=== PATIENT | female | born 2000 | race Hispanic/Latino ===

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

== ENCOUNTER 2021-03-31 20:30 | Emergency (ER) | payer SELFPAY ==
--- OUTSIDE RECORDS SUMMARY | 2021-03-31 20:33 | XMS REPORT | Continuity of Care Document ---
:2000 Author Organization [facility] t Address [address] [place] [address] Care Team Providers Name Role Phone PCP, DOES NOT HAVE A Primary Care Physician Unavailable Maria C Perea Attending Clinician Doctor Unassigned, Name Attending Clinician Unavailable Jennifer Kimbrough NP Attending Clinician Jennifer KIMBROUGH Attending Clinician Unavailable Jennifer KIMBROUGH Admitting Clinician Unavailable Payers Payer Name Policy Type Policy Number Effective Date Expiration Date [facility] [id number] 2018 CHOICE CHIP 00:00:00 Problems Condition Condition Condition Status Onset Resolution Last Treating Co mments Source Name Details Category Date Date Treatment Clinician Date No known No known Disease Unive rs active active ity of problems problems [facility] Allergies, Adverse Reactions, Alerts Allergy Allergy Status Severity Reaction(s) Onset Inactive Treating Comm ents Source Name Type Date Date Clinician NO KNOWN Drug Active Univers ALLERGIE Class ity of S [facility] Social History Social Habit Start Date Stop Date Quantity Comments Source Sex Assigned At Uni versity [facility] Exposure to SARS-CoV-2 Not sure [facility] [place] (event) [facility] Smoking Status Start Date Stop Date Source Unknown if ever smoked Universit y [facility] Medications Ordered Filled Start Stop Current Ordering Indication Dosage Frequency Signature Comments Components Source Medication Medication Date Date Medication? Clinician (SIG) Name Name cephALEXin 2019-0 2020- No 500mg 500 mg, Un brenna (KEFLEX) 08-19 Oral, ity of capsule 500 20:45: 19:52 [place]CE, [place] :00 dose, [facility] 08/20/19 at Branch 1545, DINESH
Re ason for Anti-Infec tive: Documented Infection< br>Documen carmela Infection Site: Urine
D uration of Therapy: 10 days ibuprofen 2019-0 Yes [id number] 600mg Take 1 U nivers 600 mg 7-02 tablet by ity of tablet 00:00: mouth [place] 00 every 6 Medical (six) Branch hours as needed for Pain (scale 4-6). cephALEXin 2019-2019- No [id number] 500mg Take 1 Univers (KEFLEX) 7- 07-13 capsule by ity of 500 mg 00:00: 04:59 mouth 3 [place] capsule 00 :00 (three) Medical times Branch daily for 10 days. benzonatate 2019-0 Yes [id number] 100mg Take 1 Univers 100 mg 3-13 capsule by ity of capsule 00:00: mouth 3 [place] 00 (three) Medical times Branch daily as needed for Cough. benzonatate 2019-0 Yes [id number] 100mg Take 1 Univers 100 mg 3-13 capsule by ity of capsule 00:00: mouth 3 [place] 00 (three) Medical times Branch daily as needed for Cough. benzonatate 2020-0 Yes [id number] 100mg Take 1 Univers 100 mg 3-13 capsule by ity of capsule 00:00: mouth 3 [place] 00 (three) Medical times Branch daily as needed for Cough. predniSONE 2019- No [id number] 20mg Take 1 Univers 20 mg 3-13 03-19 tablet by ity of tablet 00:00: 04:59 mouth 2 [place] 00 :00 (two) Medical times Branch daily for 5 days. ibuprofen Yes 600mg Take 1 Unive rs 600 mg 1-05 tablet by ity of tablet 00:00: mouth [place] 00 every 6 Medical (six) Branch hours as needed for Pain (scale 1-3) or Temp > 38.5 C for up to 30 doses. ibuprofen 0 Yes 600mg Take 1 Unive rs 600 mg 1-05 tablet by ity of tablet 00:00: mouth [place] 00 every 6 Medical (six) Branch hours as needed for Pain (scale 1-3) or Temp > 38.5 C for up to 30 doses. ibuprofen 0 Yes 600mg Take 1 Unive rs 600 mg 1-05 tablet by ity of tablet 00:00: mouth [place] 00 every 6 Medical (six) Branch hours as needed for Pain (scale 1-3) or Temp > 38.5 C for up to 30 doses. ibuprofen 600mg Take 1 Univ ers 600 mg 02-22 tablet by ity of tablet 00:00: 00:00 mouth [place] 00 :00 every 6 Medical (six) Branch hours as needed for Pain (scale 1-3) or Temp > 38.5 C for up to 30 doses. Vital Signs Vital Name Observation Time Observation Value Comments Source Systolic blood 2019-08-20 17:20:00 129 mm[Hg] Univer sity of pressure [facility] Diastolic blood 2019-08-20 17:20:00 88 mm[Hg] Unive rsity of [facility] Heart rate 2019-08-20 17:20:00 82 /min Universi ty [facility] Body temperature 2019-08-20 17:20:00 36.94 Oly [facility] Respiratory rate 2019-08-20 17:20:00 18 /min [facility] Body weight 2019-08-20 17:20:00 [facility].523 [facility] saturation in 2019-08-20 17:20:00 100 /min University of Arterial blood by [facility] Pulse oximetry Branch Systolic blood 2019-08-20 17:20:00 129 mm[Hg] Univer sity of [facility] Diastolic blood 2019-08-20 17:20:00 88 mm[Hg] Unive rsity of [facility] Heart rate 2019-08-20 17:20:00 82 /min Universi ty [facility] Body temperature 2019-08-20 17:20:00 36.94 Oly [facility] Respiratory rate 2019-08-20 17:20:00 18 /min [facility] ersity of [facility] Body weight 2019-08-20 17:20:00 97.523 kg Universi ty [facility] Oxygen saturation in 2019-08-20 17:20:00 100 /min University of Arterial blood by [facility] Pulse oximetry Branch Systolic blood 2019-05-01 23:38:59 140 mm[Hg] Univer sity of pressure [facility] Diastolic blood 2019-05-01 23:38:59 77 mm[Hg] Unive rsity of pressure [place] [facility] Heart rate 2019-05-01 23:38:59 88 /min Universi ty [facility] [place] [facility] Oxygen saturation in 2019-05-01 23:38:59 100 /min University of Arterial blood by [facility] Pulse oximetry Branch Body temperature 2019-05-01 19:38:00 37.5 Oly Univ ers[facility] [place] [facility] Respiratory rate 2019-05-01 19:38:00 20 /min Univ ers[facility] [place] [facility] Body height 2019-05-01 19:38:00 172.7 cm [facility]i [facility] [place] [facility] Body weight 2019-05-01 19:25:00 95.3 kg Universi ty [facility] [place] [facility] BMI 2019-05-01 19:25:00 31.95 kg/m2 [facility]i [facility] [place] [facility] Systolic blood 2019-05-01 23:38:59 140 mm[Hg] Univer sity of pressure [place] [facility] Diastolic blood 2019-05-01 23:38:59 77 mm[Hg] Unive rsity of pressure [facility] Heart rate 2019-05-01 23:38:59 88 /min Universi ty [facility] [place] [facility] Oxygen saturation in 2019-05-01 23:38:59 100 /min University of Arterial blood by [facility] Pulse oximetry Branch Body temperature 2019-05-01 19:38:00 37.5 Oly Univ ers[facility] [place] [facility] Respiratory rate 2019-05-01 19:38:00 20 /min Univ ers[facility] [place] [facility] [place] Body height 2019-05-01 19:38:00 172.7 cm [facility] [place] [facility] Body weight 2019-05-01 19:25:00 95.3 kg [facility] [place] [facility] BMI 2019-05-01 19:25:00 31.95 kg/m2 [facility] [place] [facility] Procedures Procedure Date / Time Performed Performing Clinician Sourc e POCT TEST 2019-08-20 17:32:00 Raghavendra [facility] URINALYSIS 2019-08-20 17:31:00 Raghavendra Levine [place] o f [facility] CONSENT/REFUSAL FOR 2019-08-20 17:16:23 Doctor Unassigned, No Un [facility] DIAGNOSIS AND Name Medical Branch TREATMENT XR CHEST 2 VW 2019-05-01 22:50:14 Gudelia Kimbrough [facility] URINALYSIS 2019-05-01 21:35:00 Gudelia Kimbrough [facility] POCT TEST 2019-05-01 21:34:00 Gudelia Kimbrough [facility] RAPID STREP SCREEN FOR 2019-05-01 21:33:00 Gudelia Kimbrough [facility] ADC,CLC OR LCC ONLY - 2019-05-01 19:41:00 [facility] INFLU[facility]ZA A & B DIRECT Medical B ranch ANTIGEN NOTICE OF PRIVACY 2019-05-01 19:14:49 Doctor Unassigned, No [facility] Name Medical Branch CONSENT/REFUSAL FOR 2019-05-01 19:12:47 Doctor Unassigned, No [facility] AND Name Medical Branch TREATMENT Encounters Start End Encounter Admission Attending Care Care Encounter Source Date/Time Date/Time Type Type Clinicians Facility Department ID 2019-08-20 2019-08-20 Emergency Imani, K [facility] [id number] 12:23:02 15:14:00 Maria C Scott [id number] [place] 4.2.7.2.686 [place] [id number] 2019-08-20 2019-08-[address] [facility] [id number] Univers 12:23:02 15:14:00 Maria C Scott [id number] i ty of [place] 4.2.7.2.686 [facility] [id number] [place] [address] Branch 2019-08-20 2019-08-[address] [facility] ERT [id number] Univers 12:17:00 12:17:[address] [facility] 2019-08-20 2019-08-20 Orders Doctor KELLY [id number] 00:00:00 00:00:00 Only UnassignedALISE 350.1.13.10 [place] [facility] 4.2.7.2.686 [id number] 2019-08-20 2019-08-20 Orders Doctor KELLY [id number] Univers 00:00:00 00:00:00 Only Unassigned, ALISE [id number] ity of [place] [facility] 4.2.7.2.686 [place] [id number] [address] 2019-05-01 2019-05-01 Emergency [facility] [id number] 15:48:46 18:39:00 Gudelia Scott 350.1.13.10 [place] 4.2.7.2.686 [place] [id number] 2019-05-01 2019-05-01 Emergency X [facility] ERT [id number] Univers 15:48:46 18:39:00 GUDELIA it[address] of [facility] 2019-05-01 2019-05-01 Emergency [facility] [id number] Univers 15:48:46 18:39:00 Gudelia G Sonia 350.1.13.10 ity of [place] 4.2.7.2.686 [facility] [id number] [address] 2019-05-01 2019-05-01 Orders Doctor LETICIA [id number] Univers 00:00:00 00:00:00 Only Unassigned, ALISE 350.1.13.10 ity of [place] [facility] 4.2.7.2.686 [place] [id number] [address] 2019-05-01 2019-05-01 Orders Doctor LETICIA [id number] 00:00:00 00:00:00 Only Unassigned, ALISE 350.1.13.10 [place] [facility] 4.2.7.2.686 [id number] Results Test Description Test Time Test Comments Results Result Comments Source URINALYSIS 2019-08-20 18:20:00 Test Item Value Reference Range Interpretation Comme nts APPEARANCE (test code = Hazy Clear A 1883482393) COLOR (test code = 5836708669) Avis Yellow A PH (test code = 7119536032) 4.8-8.0 SP GRAVITY (test code = 1.003-1.030 5202740598) GLU U QUAL (test code = Normal Normal 1269911217) BLOOD (test code = 4459108501) 3+ Negative A KETONES (test code = 6392830992) Negative Negative PROTEIN (test code = 2887-8) 30 mg/dL Negative A UROBILIN (test code = Normal Normal 6081275346) BILIRUBIN (test code = Negative Negative 5650834335) NITRITE (test code = 5527815834) Negative Negative LEUK JORJE (test code = 25/uL Negative A 4803544580) RBC/HPF (test code = 5016459325) See_Comment H [Automated message] The system which ge nerated this result transmit carmela reference range: 0 - 3 HP F. The reference range was not used to interpret th is result as normal/abnormal . WBC/HPF (test code = 9282530429) See_Comment H [Automated message] The system which ge nerated this result transmit carmela reference range: 0 - 5 HP F. The reference range was not used to interpret th is result as normal/abnormal . BACTERIA (test code = Few Negative A 1826639407) MUCOUS (test code = 4440721765) Slight Negative LPF A SQ EPITH (test code = HPF 1795869579) Lab Interpretation (test code = Abnormal 16982-1) [id number] 17:32:00 Test Item Value Reference Range Interpretation Comments POCT PREG (test code = 1605) negative On board controls acceptable with C present Line (test code = 3574) POCT PREG LOT # (test code = 3575) [id number] POCT PREG TEST DATE (test 09/17/2020 code = 3576) Lab Interpretation (test code = Normal 65487-3) [facility] 2 [id number] 22:57:18 No acute cardiopulmonary process. Preliminary Report Dictated by Resident: Mo Mac MD., have reviewed this study and agree with theabove report.PROCEDURE: XR CHEST 2 VW CLINICAL INDICATION: cough COMPARISON: None TECHNIQUE: Frontal and lateral views of the chest were obtained. FINDINGS: The lungs are well-expanded and clear without focal consolidation, pleuraleffusion, orpneumothorax. The cardiac silhouette is normal in size. No acute osseous abnormality. [facility], Radiant Results Inft User - 05/01/2019 5:58 PM CDTPROCEDURE: XR CHEST 2 VWCLINICAL INDICATION: coughCOMPARISON: NoneTECHNIQUE: Frontal and lateral views of the chest were obtained.FINDINGS:The lungs are wel l-expanded and clear without focal consolidation, pleuraleffusion, or pneumothorax. The cardiac silhouette is normal in size. No acute osseous abnormality. IMPRESSIONNo acute cardiopulmonary process.Preliminary Report Dictated by Resident: Christian Castañeda MD., have reviewed this study and agree with theabove report.[facility] S[facility] FOR GROUP [id number] 22:14:00 Test Item Value Reference Range Interpretation Comments Streptococcus pyogenes (group A) Negative Negative antigen (test code = 61845-8) Lab Interpretation (test code = Normal 11592-3) [facility] CenterUrinalysis2020-03-13 22:04:00 Test Item Value Reference Range Interpretation Comments APPEARANCE (test code = Hazy Clear A 4882290545) COLOR (test code = Yellow Yellow 3552907553) PH (test code = 4.8-8.0 9050412546) SP GRAVITY (test code = 1.003-1.030 4678519626) GLU U QUAL (test code = Normal Normal 3927600583) BLOOD (test code = Negative Negative 3653262764) KETONES (test code = Negative Negative 4456299407) PROTEIN (test code = Negative Negative 2887-8) UROBILIN (test code = Normal Normal 3994980390) BILIRUBIN (test code = Negative Negative 8513682568) NITRITE (test code = Negative Negative 1787328804) LEUK JORJE (test code = 25/uL Negative A 6947794896) RBC/HPF (test code = See_Comment [Autom ated message] 9228914632) The system [employer] generated this result transmitted ref erence range: 0 - 3 HP F. The reference range was not used to int erpret this result as normal/abnormal . WBC/HPF (test code = See_Comment [Autom ated message] 5134125156) The system [employer] generated this result transmitted ref erence range: 0 - 5 HP F. The reference range was not used to int erpret this result as normal/abnormal . BACTERIA (test code = Negative Negative 7961034231) MUCOUS (test code = Slight Negative LPF A 3970102221) Lab Interpretation (test Abnormal code = 93887-6) [facility] [id number] 21:34:00 Test Item Value Reference Range Interpretation Comments POCT PREG (test code = 1605) negative Lab Interpretation (test code = Normal 22255-5) [facility] ONLY - INFLUENZA A & B DIRECT [id number] 20:15:00 Test Item Value Reference Range Interpretation Comments Influenza A (test code = 09240-2) Negative Negative Influenza B (test code = 24784-5) Negative Negative Lab Interpretation (test code = Normal 61431-9) [facility]
--- NOTE | 2021-03-31 21:45 | RAD REPORT ---
EXAM DESCRIPTION: RAD - Wrist Left 2 View - 03/31/2021 9:37 pm CLINICAL HISTORY: PAIN COMPARISON: No comparisons FINDINGS: No fracture is identified. There is no dislocation or periosteal reaction noted. No foreig n body or other soft tissue abnormality. IMPRESSION: Negative left wrist examination.
[2021-03-31 23:08] LABS: Urine Blood 3+ (Negative); Urine Glucose Negative (Negative); Urine Protein 2+ (Negative); Urine pH 8.5 (5.0-7.0)
[2021-03-31] MEDS ORDERED: KETOROLAC 30 MG/ML INJ ONE (23:20)
--- NOTE | 2021-03-31 23:33 | EDPHYS ---
Physician Documentation [facility] Name: Janett Zeng Age: 21 yrs Sex: Female : 2000 Arrival Date: 03/31/2021 Time: 20:37 Bed 18 Private MD: MINO Physician Gregory Wynne HPI: 03/31 22:57 This 21 yrs old Female presents to ER via Ambulatory with complaints of Wrist mh7 Pain. 22:57 The patient or guardian reports pain, swelling. The complaints affect the left hand and mh7 left wrist. Context: The problem was sustained at home, resulted from a repetitive motion, pulling, twisting. Onset: The symptoms/episode began/occurred today. Modifying factors: The symptoms are alleviated by nothing, the symptoms are aggravated by movement. Associated signs and symptoms: Pertinent negatives: cyanosis distally, decreased sensation distally, fever, nausea, numbness distally, tingling distally, vomiting. Severity of symptoms: At their worst the symptoms were moderate, earlier today, in the emergency department the symptoms have improved, moderately. The patient has experienced a previous episode, approximately 3 weeks ago. 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 Flu vaccine is not up to date. - Social history:: Smoking status: Patient denies any tobacco usage or history of. ROS: 22:57 Constitutional: Negative for fever, chills, and weight loss, Eyes: Negative for injury, mh7 pain, redness, and discharge, ENT: Negative for injury, pain, and discharge, Neck: Negative for injury, pain, and swelling, Cardiovascular: Negative for chest pain, palpitations, and edema, Respiratory: Negative for shortness of breath, cough, wheezing, and pleuritic chest pain, Abdomen/GI: Negative for abdominal pain, nausea, vomiting, diarrhea, and constipation, Back: Negative for injury and pain, : Negative for injury, bleeding, discharge, and swelling, Skin: Negative for injury, rash, and discoloration, Neuro: Negative for headache, weakness, numbness, tingling, and seizure, Psych: Negative for depression, anxiety, suicide ideation, homicidal ideation, and hallucinations, Allergy/Immunology: Negative for hives, rash, and allergies, Endocrine: Negative for neck swelling, polydipsia, polyuria, polyphagia, and marked weight changes, Hematologic/Lymphatic: Negative for swollen nodes, abnormal bleeding, and unusual bruising. Exam: 22:57 Constitutional: This is a well developed, well nourished patient who is awake, alert, mh7 and in no acute distress. Head/Face: Normocephalic, atraumatic. Eyes: Pupils equal round and reactive to light, extra-ocular motions intact. Lids and lashes normal. Conjunctiva and sclera are non-icteric and not injected. Cornea within normal limits. Periorbital areas with no swelling, redness, or edema. 22:57 Skin: Warm, dry with normal turgor. Normal color with no rashes, no lesions, and no evidence of cellulitis. Neuro: Awake and alert, GCS 15, oriented to person, place, time, and situation. Cranial nerves II-XII grossly intact. Motor strength 5/5 in all extremities. Sensory grossly intact. Cerebellar exam normal. Normal gait. Psych: Awake, alert, with orientation to person, place and time. Behavior, mood, and affect are within normal limits. 22:57 Musculoskeletal/extremity: Extremities: noted in the left wrist: pain, tenderness, ROM: limited active range of motion due to pain, in the left wrist, limited passive range of motion due to pain, in the left wrist, Circulation is intact in all extremities. Sensation intact. Compartment Syndrome exam of affected extremity: is normal. no numbness, no tingling, no sensation deficit, no palor, no weak pulses, Joints: the left wrist displays painful range of motion, tenderness, Weight bearing: able to fully bear weight, without difficulty, Tendon exam: specific tendon testing normal through active and passive range of motion Vital Signs: 20:56 BP 132 / 97; Pulse 95; Resp 16; Temp 98.9; Pulse Ox 100% on R/A; Weight 104.33 kg; vc1 Height 5 ft. 8 in. (172.72 cm); 20:56 Body Mass Index 34.97 (104.33 kg, 172.72 cm) vc1 Procedures: 23:35 Splinting: Splint applied to left wrist using wrist splint, applied by nurse. Examined mh7 by me, post splint application: neurovascular intact, 2+ distal pulses palpable, brisk capillary refill noted, Patient tolerated well. MDM: 23:30 Differential diagnosis: dislocation, closed fracture, contusion, abrasion, tendonitis. 7 Data reviewed: vital signs, nurses notes, lab test result(s), urinalysis, UPT: negative radiologic studies, plain films. Data interpreted: Pulse oximetry: on room air is 100 %. Interpretation: normal. Counseling: I had a detailed discussion with the patient and/or guardian regarding: the historical points, exam findings, and any diagnostic results supporting the discharge/admit diagnosis, lab results, radiology results, the need for outpatient follow up, a hand specialist, to return to the emergency department if symptoms worsen or persist or if there are any questions or concerns that arise at home. Response to treatment: the patient's symptoms have markedly improved after treatment. 23:33 Patient medically screened. 7 03/31 23:09 Order name: Urine Dipstick-Ancillary; Complete Time: 23:14 EDMS 03/31 23:25 Order name: Urine --Ancillary (enter results) cs9 03/31 21:00 Order name: XRAY Wrist LEFT 2 view; Complete Time: 22:19 vc1 03/31 23:25 Order name: Urine --Ancillary; Complete Time: 23:29 EDMS 03/31 22:46 Order name: Urine Test (obtain specimen); Complete Time: 23:19 7 03/31 23:16 Order name: Wrist Splint; Complete Time: 23:28 7 Administered Medications: 23:22 Drug: Ketorolac 30 mg Route: IM; Site: right deltoid; sf1 23:45 Drug: KeFLEX (cephalexin) 500 mg Route: PO; sf1 Disposition Summary: 03/31/21 23:33 Discharge Ordered Location: Home [facility] Problem: [facility] Symptoms: have improved mh Condition: Stable [facility] Diagnosis - Pain in left wrist mh7 - UTI/ Urinary tract infection, site not specified [facility] Followup: [facility] - With: Private Physician - When: 1 - 2 days - Reason: Worsening of condition, Recheck today's complaints, Continuance of care, Re-evaluation by your physician Followup: [facility] - With: Neil Del Cid MD - When: 2 - 3 days - Reason: Worsening of condition, Recheck today's complaints Discharge Instructions: - Discharge Summary Sheet [facility] - Urinary Tract Infection, Adult [facility] - Wrist Splint, Adult, [id number] [facility] - Wrist Pain, Adult, [id number] [facility] Forms: - Medication Reconciliation Form [facility] - Thank You Letter [facility] - Antibiotic Education [facility] - Prescription Opioid Use [facility] Prescriptions: - ketorolac 10 mg Oral tablet - take 1 tablet by ORAL route every 6 hours As needed not to exceed 40 mg in 7 24hrs; 15 tablet; Refills: 0, Product Selection Permitted - Cephalexin 500 mg Oral Capsule - take 1 capsule by ORAL route every 12 hours for 10 days; 20 capsule; Refills: 7 0, Product Selection Permitted Signatures: Dispatcher [employer] Gregory Hughes MD MD [facility] Haley Love RN RN vc1 Karlie Whittington RN RN sf1 Corrections: (The following items were deleted from the chart) 22:57 22:57 The patient or guardian reports pain, [place] [id number]
--- NOTE | 2021-03-31 23:33 | ER ---
Nurse's Notes [facility] Name: Janett Zeng Age: 21 yrs Sex: Female : 2000 Arrival Date: 03/31/2021 Time: 20:37 Bed 18 Private MD: Diagnosis: Pain in left wrist;UTI/ Urinary tract infection, site not specified Presentation: 03/31 20:53 Chief complaint: Patient states: 3 weeks ago my hand was hurting and swollen but it vc1 went away. Today it came back and it is swollen, I can't even open my hand. Coronavirus screen: Vaccine status: Patient reports being unvaccinated. Ebola Screen: No symptoms or risks identified at this time. Onset of symptoms was March 31, 2021. 20:53 Method Of Arrival: Ambulatory vc1 20:53 Acuity: THIEN 4 vc1 Triage Assessment: 20:54 General: Appears in no apparent distress. comfortable, Behavior is calm, cooperative, vc1 appropriate for age. Pain: Complains of pain in left wrist Pain does not radiate. Pain currently is 7 out of 10 on a pain scale. at worst was 10 out of 10 on a pain scale. Quality of pain is described as sharp, Alleviated by rest, Aggravated by movement, opening hand. Musculoskeletal: Range of motion: limited in left wrist Swelling present in left wrist Reports weakness in left wrist and left hand pain in left wrist. 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 Flu vaccine is not up to date. - Social history:: Smoking status: Patient denies any tobacco usage or history of. Vital Signs: 20:56 BP 132 / 97; Pulse 95; Resp 16; Temp 98.9; Pulse Ox 100% on R/A; Weight 104.33 kg; vc1 Height 5 ft. 8 in. (172.72 cm); 20:56 Body Mass Index 34.97 (104.33 kg, 172.72 cm) vc1 ED Course: 20:37 Patient arrived in ED. 20:54 Triage completed. vc1 20:54 Arm band placed on right wrist. vc1 21:36 XRAY Wrist LEFT 2 view In Process Unspecified. EDMS 22:12 Gregory Wynne MD is Attending Physician. [facility] 22:55 Karlie Whittington RN is Primary Nurse. sf1 23:32 Neil Del Cid MD is Referral Physician. [facility] Administered Medications: 23:22 Drug: Ketorolac 30 mg Route: IM; Site: right deltoid; sf1 23:45 Drug: KeFLEX (cephalexin) 500 mg Route: PO; sf1 Outcome: 23:33 Discharge ordered by . [facility] 23:46 Patient left the ED. sf1 Signatures: Dispatcher [employer] EDNV Gregory Wynne MD MD [facility] Rebecca Damon Haley Love RN RN vc1 Karlie Whittington RN RN sf1
[2021-03-31] MEDS ORDERED: levETIRAcetam 500 MG TAB ONE (23:41)
[2021-03-31 23:49] VITALS: BP 132/97; TEMP 98.9; O2SAT 100
== END 2021-03-31 23:46 | disposition home or self-care (01) ==
LOC: ER 20:30
DX: M25.532 Pain in left wrist (principal); N39.0 Urinary tract infection, site not specified
CPT/HCPCS: 81003; 81025; 96372; 99283

== ENCOUNTER 2021-07-23 01:05 | Emergency (ER) | payer SELFPAY ==
--- OUTSIDE RECORDS SUMMARY | 2021-07-23 01:08 | XMS REPORT | Continuity of Care Document ---
:2000 Author Organization [facility] t Address [address] [place] [address] [address]. [address] [place] [address] Care Team Providers Name Role Phone PCP, DOES NOT HAVE A Primary Care Physician Unavailable Imani PACMaria C Attending Clinician Doctor Unassigned, Name Attending Clinician Unavailable Jennifer Kimbrough NP Attending Clinician Jennifer KIMBROUGH Attending Clinician Unavailable Jennifer KIMBROUGH Admitting Clinician Unavailable Payers Payer Name Policy Type Policy Number Effective Date Expiration Date [facility] [id number] 2018 CHOICE CHIP 00:00:00 Problems Condition Condition Condition Status Onset Resolution Last Treating Co mments Source Name Details Category Date Date Treatment Clinician Date No known No known Disease Unive rs active active ity of problems problems [facility] Allergies, Adverse Reactions, Alerts Allergy Allergy Status Severity Reaction(s) Onset Inactive Treating Comm ents Source Name Type Date Date Clinician NO KNOWN Drug Active Univers ALLERGIE Class ity of S [facility] Social History Social Habit Start Date Stop Date Quantity Comments Source Sex Assigned At Uni versity [facility] Exposure to SARS-CoV-2 Not sure Un iversity [facility] (event) [facility] Smoking Status Start Date Stop Date Source Unknown if ever smoked Universit y [facility] Medications Ordered Filled Start Stop Current Ordering Indication Dosage Frequency Signature Comments Components Source Medication Medication Date Date Medication? Clinician (SIG) Name Name cephALEXin 2020-0 2020- No 500mg 500 mg, Un brenna (KEFLEX) 08-19 07-02 Oral, ity of capsule 500 20:45: 19:52 [place] :00 dose, [facility] 08/20/19 at Branch 1545, DINESH
Re ason for Anti-Infec tive: Documented Infection< br>Documen carmela Infection Site: Urine
D uration of Therapy: 10 days ibuprofen 2019-0 Yes [id number] 600mg Take 1 U nivers 600 mg 7-02 tablet by ity of tablet 00:00: mouth [place] 00 every 6 Medical (six) Branch hours as needed for Pain (scale 4-6). cephALEXin 2019- No [id number] 500mg Take 1 Univers (KEFLEX) 7- 07-13 capsule by ity of 500 mg 00:00: 04:59 mouth 3 [place] capsule 00 :00 (three) Medical times Branch daily for 10 days. benzonatate 2019-0 Yes [id number] 100mg Take 1 Univers 100 mg 3-13 capsule by ity of capsule 00:00: mouth 3 [place] 00 (three) Medical times Branch daily as needed for Cough. benzonatate 2019-0 Yes [id number] 100mg Take 1 Univers 100 mg 3-13 capsule by ity of capsule 00:00: mouth 3 [place] 00 (three) Medical times Branch daily as needed for Cough. benzonatate 2020-0 Yes [id number] 100mg Take 1 Univers 100 mg 3-13 capsule by ity of capsule 00:00: mouth 3 [place] 00 (three) Medical times Branch daily as needed for Cough. predniSONE 2019- No [id number] 20mg Take 1 Univers 20 mg 3-13 [...] C for up to 30 doses. ibuprofen Yes 600mg Take 1 Unive rs 600 mg 1-05 tablet by ity of tablet 00:00: mouth [place] 00 every 6 Medical (six) Branch hours as needed for Pain (scale 1-3) or Temp > 38.5 C for up to 30 doses. ibuprofen Yes 600mg Take 1 Unive rs 600 mg 1-05 tablet by ity of tablet 00:00: mouth [place] 00 every 6 Medical (six) Branch hours as needed for Pain (scale 1-3) or Temp > 38.5 C for up to 30 doses. ibuprofen 2019- No 600mg Take 1 Univ ers 600 mg 02-22 tablet by ity of tablet 00:00: 00:00 mouth [place] 00 :00 every 6 Medical (six) Branch hours as needed for Pain (scale 1-3) or Temp > 38.5 C for up to 30 doses. Vital Signs Vital Name Observation Time Observation Value Comments Source Systolic blood 2019-08-20 17:20:00 129 mm[Hg] Univer sity of pressure [facility] Diastolic blood 2019-08-20 17:20:00 88 mm[Hg] Unive rsity of [facility] Heart rate 2019-08-20 17:20:00 82 /min Universi ty [facility] Body temperature 2019-08-20 17:20:00 36.94 Oly [facility] [place] [facility] ersity of [facility] Respiratory rate 2019-08-20 17:20:00 18 /min [facility] ersity of [facility] Body weight 2019-08-20 17:20:00 97.523 kg Universi ty [facility] Oxygen saturation in 2019-08-20 17:20:00 100 /min University of Arterial blood by [facility] Pulse oximetry Branch Systolic blood 2019-08-20 17:20:00 129 mm[Hg] Univer sity of [facility] Diastolic blood 2019-08-20 17:20:00 88 mm[Hg] Unive rsity of [facility] Heart rate 2019-08-20 17:20:00 82 /min Universi ty [facility] Body temperature 2019-08-20 17:20:00 36.94 Oly [facility] Respiratory rate 2019-08-20 17:20:00 18 /min [facility] [place] [facility] ersity of [facility] Body weight 2019-08-20 17:20:00 97.523 kg Universi ty [facility] Oxygen saturation in 2019-08-20 17:20:00 100 /min University of Arterial blood by [facility] Pulse oximetry Branch Systolic blood 2019-05-01 23:38:59 140 mm[Hg] Univer sity of pressure [facility] Diastolic blood 2019-05-01 23:38:59 77 mm[Hg] Unive rsity of pressure [facility] Heart rate 2019-05-01 23:38:59 88 /min Universi ty [facility] Oxygen saturation in 2019-05-01 23:38:59 100 /min University of Arterial blood by [facility] Pulse oximetry Branch Body temperature 2019-05-01 19:38:00 37.5 Oly Univ ersity of [facility] Respiratory rate 2019-05-01 19:38:00 20 /min Univ ersity of [facility] Body height 2019-05-01 19:38:00 172.7 cm Universi ty [facility] Body weight 2019-05-01 19:25:00 95.3 kg Universi ty [facility] BMI 2019-05-01 19:25:00 31.95 kg/m2 Universi ty [facility] Systolic blood 2019-05-01 23:38:59 140 mm[Hg] Univer sity of pressure [facility] Diastolic blood 2019-05-01 23:38:59 77 mm[Hg] Unive rsity of pressure [facility] Heart rate 2019-05-01 23:38:59 88 /min Universi ty of [facility] Oxygen saturation in 2019-05-01 23:38:59 100 /min University of Arterial blood by [facility] Pulse oximetry Branch Body temperature 2019-05-01 19:38:00 37.5 Oly Univ ersity of [facility] Respiratory rate 2019-05-01 19:38:00 20 /min Univ ersity of [facility] Body height 2019-05-01 19:38:00 172.7 cm Universi ty of [facility] Body weight 2019-05-01 19:25:00 95.3 kg Universi ty [facility] BMI 2019-05-01 19:25:00 31.95 kg/m2 Universi ty [facility] Procedures Procedure Date / Time Performed Performing Clinician Sourc e POCT TEST 2019-08-20 17:32:00 Raghavendra Levine [facility] ty of [facility] URINALYSIS 2019-08-20 17:31:00 Raghavendra Levine o f [facility] CONSENT/REFUSAL FOR 2019-08-20 17:16:23 Doctor Unassigned, No Un [facility] DIAGNOSIS AND Name Medical Branch TREATMENT XR CHEST 2 VW 2019-05-01 22:50:[address] [facility] URINALYSIS 2019-05-01 21:35:[address] [facility] POCT TEST 2019-05-01 21:34:00 Gudelia Kimbrough [facility] RAPID STREP SCREEN FOR 2019-05-01 21:33:00 Gudelia Kimbrough [facility] [place] [facility] ADC,CLC OR LCC ONLY - 2019-05-01 19:41:00 Gudelia Kimbrough [facility] [place] [facility] [place] [facility] INFLU[facility]ZA A & B DIRECT Medical B [place] ANTIGEN NOTICE OF PRIVACY 2019-05-01 19:14:49 Doctor Unassigned, No Univ [facility] [place] [facility] Name Medical Branch CONSENT/REFUSAL FOR 2019-05-01 19:12:47 Doctor Unassigned, No [facility] [place] [facility] DIAG[facility]IS AND Name Medical Branch TREATMENT Encounters Start End Encounter Admission Attending Care Care Encounter Source Date/Time Date/Time Type Type Clinicians Facility Department ID 2019-08-20 2019-08-20 Emergency Imani, [facility] [id number] 12:23:02 15:14:00 Maria C Scott [id number] [place] 4.2.7.2.686 [place] [id number] 2019-08-20 2019-08-20 Emergency Imani, K [facility] [id number] Univers 12:23:02 15:14:00 Maria C Scott [id number] i ty of [place] 4.2.7.2.686 [facility] [id number] [place] [address] Branch 2019-08-20 2019-08-20 Emergency X [facility] ERT [id number] Univers 12:17:00 12:17:00 ity of [facility] 2019-08-20 2019-08-20 Orders Doctor KELLY [id number] 00:00:00 00:00:00 Only UnassignedALISE 350.1.13.10 [place] [facility] 4.2.7.2.686 [id number] 2019-08-20 2019-08-20 Orders Doctor KELLY [id number] Univers 00:00:00 00:00:00 Only Unassigned, ALISE 350.1.13.10 ity of [place] [facility] 4.2.7.2.686 [place] as [id number] [facility] [address] [place] 2019-05-01 2019-05-01 Emergency [facility] [id number] 15:48:46 18:39:00 Gudeila Scott 350.1.13.10 [place] 4.2.7.2.686 [place] [id number] 2019-05-01 2019-05-01 Emergency X [facility] ERT [id number] Univers 15:48:46 18:39:00 GUDELIA ity of [facility] 2019-05-01 2019-05-01 Emergency [facility] [id number] Univers 15:48:46 18:39:00 Gudelia Scott 350.1.13.10 ity of [place] 4.2.7.2.686 [facility] [id number] [place] [address] [place] 2019-05-01 2019-05-01 Orders Doctor LETICIA [id number] Univers 00:00:00 00:00:00 Only Unassigned, ALISE 350.1.13.10 ity of [place] [facility] 4.2.7.2.686 [place] as [id number] [facility] [address] [place] 2019-05-01 2019-05-01 Orders Doctor LETICIA [id number] 00:00:00 00:00:00 Only Unassigned, ALISE 350.1.13.10 [place] [facility] 4.2.7.2.686 [id number] Results Test Description Test Time Test Comments Results Result Comments Source URINALYSIS 2019-08-20 18:20:00 Test Item Value Reference Range Interpretation Comme nts APPEARANCE (test code = Hazy Clear A 2270109152) COLOR (test code = 0931022616) Avis Yellow A PH (test code = 7326257384) 4.8-8.0 SP GRAVITY (test code = 1.003-1.030 2536105359) GLU U QUAL (test code = Normal Normal 3788823342) BLOOD (test code = 7078703793) 3+ Negative A KETONES (test code = 0633847358) Negative Negative PROTEIN (test code = 2887-8) 30 mg/dL Negative A UROBILIN (test code = Normal Normal 6555847578) BILIRUBIN (test code = Negative Negative 0493633325) NITRITE (test code = 3486261580) Negative Negative LEUK JORJE (test code = 25/uL Negative A 6339491376) RBC/HPF (test code = 3772053053) See_Comment H [Automated message] The system which ge nerated this result transmit carmela reference range: 0 - 3 HP F. The reference range was not used to interpret th is result as normal/abnormal . WBC/HPF (test code = 7967105619) See_Comment H [Automated message] The system which ge nerated this result transmit carmela reference range: 0 - 5 HP F. The reference range was not used to interpret th is result as normal/abnormal . BACTERIA (test code = Few Negative A 8860787492) MUCOUS (test code = 5141776605) Slight Negative LPF A SQ EPITH (test code = HPF 9029492873) Lab Interpretation (test code = Abnormal 06771-5) [id number] 17:32:00 Test Item Value Reference Range Interpretation Comments POCT PREG (test code = 1605) negative On board controls acceptable with C present Line (test code = 3574) POCT PREG LOT # (test code = 3575) [id number] POCT PREG TEST DATE (test 09/17/2020 code = 3576) Lab Interpretation (test code = Normal 06522-9) [facility] 2 [id number] 22:57:18 No acute cardiopulmonary process. Preliminary Report [...] reviewed this study and agree with theabove report.[facility] FOR GROUP [id number] 22:14:00 Test Item Value Reference Range Interpretation Comments Streptococcus pyogenes (group A) Negative Negative antigen (test code = 76543-3) Lab Interpretation (test code = Normal 11646-6) [facility] 22:04:00 Test Item Value Reference Range Interpretation Comments APPEARANCE (test code = Hazy Clear A 1793713537) COLOR (test code = Yellow Yellow 9259676702) PH (test code = 4.8-8.0 7812689233) SP GRAVITY (test code = 1.003-1.030 8031750507) GLU U QUAL (test code = Normal Normal 3553551810) BLOOD (test code = Negative Negative 8731837759) KETONES (test code = Negative Negative 6122425167) PROTEIN (test code = Negative Negative 2887-8) UROBILIN (test code = Normal Normal 4279418747) BILIRUBIN (test code = Negative Negative 4380862906) NITRITE (test code = Negative Negative 8312817848) LEUK JORJE (test code = 25/uL Negative A 8302910441) RBC/HPF (test code = See_Comment [Autom ated message] 3787178760) The system bVisual generated this result transmitted ref erence range: 0 - 3 HP F. The reference range was not used to int erpret this result as normal/abnormal . WBC/HPF (test code = See_Comment [Autom ated message] 8390690062) The system bVisual generated this result transmitted ref erence range: 0 - 5 HP F. The reference range was not used to int erpret this result as normal/abnormal . BACTERIA (test code = Negative Negative 8280773933) MUCOUS (test code = Slight Negative LPF A 9905959015) Lab Interpretation (test Abnormal code = 00408-0) [facility] [id number] 21:34:00 Test Item Value Reference Range Interpretation Comments POCT PREG (test code = 1605) negative Lab Interpretation (test code = Normal 48533-4) [facility] - INFLUENZA A & B DIRECT [id number] 20:15:00 Test Item Value Reference Range Interpretation Comments Influenza A (test code = 38416-4) Negative Negative Influenza B (test code = 78331-7) Negative Negative Lab Interpretation (test code = Normal 91254-0) [facility]
[2021-07-23 02:08] LABS: Urine Blood Trace-intact (Negative); Urine Glucose Negative (Negative); Urine Protein Trace (Negative); Urine pH 7.5 (5.0-7.0)
[2021-07-23 02:08] LABS: Absolute Lymphocytes (CBC) 4.4 K/uL (0.7-4.9); Hematocrit 41.1 % (36.0-45.0); Lymphocytes % 40.8 % (15.3-44.8); MPV 8.6 fL (7.6-11.3); RBC Red Blood Cell Count 4.66 M/uL (3.86-4.86)
[2021-07-23 02:18] LABS: Potassium 3.6 mmol/L (3.5-5.1)
--- NOTE | 2021-07-23 03:29 | ER ---
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 Care prior to arrival: None. Mechanism of Injury: Fall blow up water slide approximately 18 feet. Trauma event details: [facility] Injury occurred: at home. Injury occurred: July 23, 2021 Injury occurred at: 00:45. 01:22 Acuity: THIEN 2 5 01:22 Method Of Arrival: Ambulatory [facility] 01:58 Coronavirus screen: Vaccine status: Patient reports being unvaccinated. Ebola Screen: [facility] No symptoms or risks identified at this time. Initial Sepsis Screen: Does the patient meet any 2 criteria? No. Patient's initial sepsis screen is negative. Does the patient have a suspected source of infection? No. Patient's initial sepsis screen is negative. Risk Assessment: Do you want to hurt yourself or someone else? Patient reports no desire to harm self or others. Onset of symptoms was July 23, 2021. 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 - Immunization history: Last tetanus immunization: unknown. - Social history:: Smoking status: Patient denies any tobacco usage or history of. Screenin: Abuse screen: Denies threats or abuse. Denies injuries from another. Tuberculosis sm5 screening: No symptoms or risk factors identified. 02:00 Nutritional screening: No deficits noted. Fall Risk Fall in past 12 months (25 points). sm5 No secondary diagnosis (0 pts). IV access (20 points). Ambulatory Aid- None/Bed Rest/Nurse Assist (0 pts). Gait- Normal/Bed Rest/Wheelchair (0 pts) Mental Status- Oriented to own ability (0 pts). Total Farmer Fall Scale indicates High Risk Score (45 or more points). Fall prevention measures have been instituted. Side Rails Up X 2 Frequent Obs/Assessments Occuring As available patient and family educated on Fall Prevention Program and Strategies. Primary Survey: 01:25 NO uncontrolled hemorrhage observed. A: The client is awake and alert. The airway is sm5 patent. Breathing/Chest: Spontaneous respiratory effort, equal unlabored respirations, breath sounds clear bilaterally, regular pattern, symmetrical chest rise and fall. Circulation: No external hemorrhage present. Regular and strong central pulse, skin warm/dry/normal color. Disability Client is alert. Exposure/Environment: There is no evidence of uncontrolled external bleeding. No obvious injuries are noted at this time. A warming method has been applied: A warm blanket has been provided to the patient. 03:31 Reassessment Alertness and Airway: Awake and alert. The airway is patent. Breathing: sm5 Spontaneous respiratory effort, equal unlabored respirations, breath sounds clear bilaterally, regular pattern with symmetrical chest rise and fall. Circulation: No external hemorrhage noted. Regular and strong central pulse, skin warm/dry/normal color. Disability: Alert. Secondary Survey: 01:25 HEENT: No deficits noted. Gastrointestinal: No deficits noted. : No deficits noted. sm5 Musculoskeletal: Reports pain in neck, lower back. Assessment: 01:24 General: Appears in no apparent distress. Behavior is cooperative. Pain: Complains of sm5 pain in neck, head, lower back. Neuro: No deficits noted. Hsieh Agitation-Sedation Scale (RASS): 0 - Alert and Calm Level of Consciousness is awake, alert, obeys commands, Oriented to person, place, time, situation. Cardiovascular: No deficits noted. Capillary refill < 3 seconds Patient's skin is warm and dry. Respiratory: No deficits noted. Airway is patent Trachea midline Respiratory effort is even, unlabored. 01:48 Reassessment: Patient and/or family updated on plan of care and expected duration. Pain kd3 level reassessed. Patient is alert, oriented x 3, equal unlabored respirations, skin warm/dry/pink. pt refusing to wear neck brace. pt refusing to lay flat. pt educated on possible risks with fall injuries and trauma and protocol related to neck braces. pt verbalizes understanding. pt insisting to walk to the restroom for urine sample. Vital Signs: 01:26 BP 118 / 75; Pulse 102; Resp 17; Temp 97.9(O); Pulse Ox 99% on R/A; Weight 108.86 kg; sm5 Height 5 ft. 8 in. (172.72 cm); 03:30 BP 119 / 71; Pulse 88; Resp 16; Pulse Ox 99% on R/A; sm5 01:26 Body Mass Index 36.49 (108.86 kg, 172.72 cm) sm5 [place] Coma Score: 01:26 Eye Response: spontaneous(4). Verbal Response: oriented(5). Motor Response: obeys sm5 commands(6). Total: 15. Trauma Score (Adult): 01:26 Eye Response: spontaneous(1); Verbal Response: oriented(1); Motor Response: obeys sm5 commands(2); Systolic BP: > 89 mm Hg(4); Respiratory Rate: 10 to 29 per min(4); [place] Score: 15; Trauma Score: 12 ED Course: 01:13 Patient arrived in ED. ja2 01:16 Angel Berger DO is Attending Physician. ms3 01:22 Evita Dickson, MARINO is Primary Nurse. sm5 01:24 Triage completed. sm5 01:58 Arm band placed on right wrist. sm5 01:59 Patient has correct armband on for positive identification. Bed in low position. Call sm5 light in reach. Side rails up X2. 02:00 Patient maintains SpO2 saturation greater than 95% on room air. Thermoregulation: warm sm5 blanket given to patient. 02:52 CT Traumagram (Head C Spine CAP W Con) In Process Unspecified. EDMS 03:27 Favian Wolfe DO is Referral Physician. ms3 03:30 No provider procedures requiring assistance completed. IV discontinued, intact, sm5 bleeding controlled, No redness/swelling at site. Pressure dressing applied. Administered Medications: No medications were administered Medication: 03:31 VIS not applicable for this client. 5 Output: 03:31 Urine: 30ml (Voided); Total: 30ml. 5 Outcome: 03:28 Discharge ordered by . ms3 03:32 Patient's length of stay in the Emergency Department was greater than 2 hours. 5 03:44 Discharged to home ambulatory, with significant other. 5 03:44 Condition: stable 03:44 Discharge instructions given to patient, significant other, Instructed on discharge instructions, follow up and referral plans. medication usage, Demonstrated understanding of instructions, follow-up care, medications, Prescriptions given X 1. 03:44 Patient left the ED. 5 Signatures: Dispatcher [employer] EDMS Angel Berger DO DO ms3 Rachell Pollock Kyli, RN RN kd3 Evita Dickson, RN RN sm5
--- NOTE | 2021-07-23 03:29 | EDPHYS ---
Physician Documentation [facility] Name: Janett Zeng Age: 21 yrs Sex: Female : 2000 Arrival Date: 07/23/2021 Time: 01:13 Bed 13 Private MD: ED Physician Angel Berger HPI: 07/23 03:28 This 21 yrs old Female presents to ER via Ambulatory with complaints of Fall ms3 Injury. 03:28 Details of fall: The patient fell from a height, 18 ft inflatable slide. Onset: The ms3 symptoms/episode began/occurred acutely, just prior to arrival. Associated injuries: The patient sustained injury to the head, pain, injury to the low back, pain. Severity of symptoms: At their worst the symptoms were moderate, in the emergency department the symptoms are unchanged. Patient states she was at the top of an 18 foot inflatable slide when the material ripped causing her to fall.. 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 - Immunization history: Last tetanus immunization: unknown. - Social history:: Smoking status: Patient denies any tobacco usage or history of. ROS: 03:28 Constitutional: Negative for fever, and chills. Neck: Negative for injury, pain, and ms3 swelling, Cardiovascular: Negative for chest pain, and palpitations. Respiratory: Negative for shortness of breath, cough, wheezing, and pleuritic chest pain. 03:28 Abdomen/GI: Negative for abdominal pain, nausea, vomiting, diarrhea, and constipation, Skin: Negative for injury, rash, and discoloration. 03:28 Back: Positive for injury or acute deformity, pain at rest. 03:28 Neuro: Positive for headache. 03:28 All other systems are negative. Exam: 03:28 Constitutional: This is a well developed, well nourished patient who is awake, alert, ms3 and in no acute distress. Head/Face: Normocephalic, atraumatic. Neck: Trachea midline, no cervical lymphadenopathy. Supple, full range of motion without nuchal rigidity, or vertebral point tenderness. No Meningismus. Chest/axilla: Normal chest wall appearance and motion. Nontender with no deformity. Cardiovascular: Regular rate and rhythm with a normal S1 and S2. No gallops, murmurs, or rubs. Normal PMI, no JVD. No pulse deficits. Respiratory: Lungs have equal breath sounds bilaterally, clear to auscultation and percussion. No rales, rhonchi or wheezes noted. No increased work of breathing, no retractions or nasal flaring. Abdomen/GI: Soft, non-tender, with normal bowel sounds. No distension or tympany. No guarding or rebound. No evidence of tenderness throughout. Skin: Warm, dry with normal turgor. Normal color with no rashes, no lesions, and no evidence of cellulitis. MS/ Extremity: Pulses equal, no cyanosis. Neurovascular intact. Full, normal range of motion. Psych: Awake, alert, with orientation to person, place and time. Behavior, mood, and affect are within normal limits. 03:28 Back: pain, that is moderate, ROM is normal, muscle spasm, is not present. Vital Signs: 01:26 BP 118 / 75; Pulse 102; Resp 17; Temp 97.9(O); Pulse Ox 99% on R/A; Weight 108.86 kg; sm5 Height 5 ft. 8 in. (172.72 cm); 03:30 BP 119 / 71; Pulse 88; Resp 16; Pulse Ox 99% on R/A; sm5 01:26 Body Mass Index 36.49 (108.86 kg, 172.72 cm) sm5 [place] Coma Score: 01:26 Eye Response: spontaneous(4). Verbal Response: oriented(5). Motor Response: obeys sm5 commands(6). Total: 15. Trauma Score (Adult): 01:26 Eye Response: spontaneous(1); Verbal Response: oriented(1); Motor Response: obeys sm5 commands(2); Systolic BP: > 89 mm Hg(4); Respiratory Rate: 10 to 29 per min(4); [place] Score: 15; Trauma Score: 12 MDM: 01:21 Patient medically screened. ms3 03:28 Differential diagnosis: closed head injury, contusion, fracture. Data reviewed: vital ms3 signs, nurses notes, lab test result(s), radiologic studies, and as a result, I will discharge patient. Counseling: I had a detailed discussion with the patient and/or guardian regarding: the historical points, exam findings, and any diagnostic results supporting the discharge/admit diagnosis, lab results, radiology results, the need for outpatient follow up, to return to the emergency department if symptoms worsen or persist or if there are any questions or concerns that arise at home. ED course: Discussed labs, CT, physical exam findings with patient. Patient to follow-up with primary care physician in 2 to 3 days. Patient understands and agrees with plan. All questions were answered. Return precautions discussed include worsening symptoms, or any other concerns. On reevaluation patient is alert and oriented x4, in no apparent distress, nontoxic-appearing, speaking full sentences, ambulatory in emergency department.. 07/23 01:21 Order name: Basic Metabolic Panel; Complete Time: 02:38 ms3 07/23 01:21 Order name: CBC with Diff; Complete Time: 02:38 ms3 07/23 01:21 Order name: Type And Screen; Complete Time: 02:38 ms3 07/23 01:21 Order name: CT Traumagram (Head C Spine CAP W Con) ms3 07/23 02:07 Order name: Urine --Ancillary (enter results); Complete Time: 02:38 sm5 07/23 02:08 Order name: Urine Dipstick-Ancillary; Complete Time: 02:38 EDMS 07/23 01:21 Order name: Labs collected and sent; Complete Time: 01:50 ms3 07/23 01:22 Order name: Urine Test (obtain specimen); Complete Time: 02:07 ms3 Administered Medications: No medications were administered Disposition Summary: 07/23/21 03:28 Discharge Ordered Location: Home ms3 Condition: Stable ms3 Diagnosis - Fall ms3 - Low back pain ms3 - Headache ms3 Followup: ms3 - With: Favian Wolfe, DO - When: 2 - 3 days - Reason: Recheck today's complaints Discharge Instructions: - Discharge Summary Sheet ms3 - General Headache Without Cause ms3 - Musculoskeletal Pain ms3 Forms: - Medication Reconciliation Form ms3 - Thank You Letter ms3 - Antibiotic Education ms3 - Prescription Opioid Use ms3 Prescriptions: - Ibuprofen 600 mg Oral Tablet - take 1 tablet by ORAL route every 6 hours As needed take with food; 30 tablet; ms3 Refills: 0, Product Selection Permitted Signatures: Dispatcher [employer] EDMS Angel Berger, DO ms3 Evita Dickson, RN RN sm5
[2021-07-23 04:08] VITALS: TEMP 97.9; O2SAT 99
[2021-07-23 04:10] VITALS: BP 119/71
--- NOTE | 2021-07-25 14:02 | RAD REPORT ---
EXAM DESCRIPTION: 1. CT of the head without contrast 2. CT of the cervical spine without contrast. CLINICAL HISTORY: Fall from 18' waterslide COMPARISON: None available TECHNIQUE: Axial CT of the head obtained from the skull apex to the skull base without contrast. Axi al CT images of the cervical spine obtained from the skull base through the thoracic inlet. Sagittal and coronal reformatted images available. CT of the chest, abdomen and pelvis performed following IV administration of iodinated contrast. This exam was performed according to our departmental dose-opti mization program, which includes automated exposure control, adjustment of the mA and/or kV according to patient size and/or use of iterative reconstruction technique. FINDINGS: CT head: No acute intracranial hemorrhage identified. No mass, mass effect, shift of the midline, abnormal ext ra-axial fluid collection or CT evidence of acute ischemic change identified. The ventricular system is unremarkable. No acute abnormalities of the supratentorial white matter, basal ganglia, cerebell um, or brainstem. The visualized paranasal sinuses and the mastoids are clear. No skull fracture identified. Visualized orbits and globes are unremarkable. Cervical CT: Straightening of the cervical lordosis may be secondary to patient positioning. The atlantoaxial, a tlantodental, and occipitoatlantal intervals are preserved. No fracture identified. Vertebral body height preserved. Prevertebral soft tissues are unremarkable. Intervertebral disc height preserved. Visualized skull base is intact. No fracture of the visualized facial bones. Visualized mastoid air c ells and paranasal sinuses are well aerated. No cervical lymphadenopathy. Chest: Thyroid: No abnormalities of the visualized thyroid. Great Vessels: Great vessels have normal anatomic configuration. Thoracic Aorta: No abnormalities of the thoracic aorta identified. Pulmonary arteries: The main pulmonary artery is not dilated. Heart: No cardiomegaly, significant pericardial effusion, or coronary artery atherosclerosis Lymph Nodes: No enlarged mediastinal lymph nodes identified. Esophagus: No abnormalities of the esophagus identified Other: No additional findings. Lungs: Minimal dependent atelectasis. No confluent airspace consolidation. Pleura: No pleural effusion or pneumothorax. Trachea/Airways: No abnormalities of the visualized trachea or airways. Abdomen: Liver: Hepatomegaly and diffusely decreased density of the liver. Gallbladder: No calcified gallstones. Spleen, Pancreas, and Adrenal Glands: The spleen, pancreas, and adrenal glands are unremarkable. Kidneys: The kidneys have normal size and contour without evidence of solid mass or hydronephrosis. Vasculature: The aorta and IVC have normal caliber and position. The portal vein is patent. The pro ximal visceral and renal arteries are patent. Stomach: Small hiatal hernia. Other: No free intraperitoneal air. No free fluid or lymphadenopathy. Pelvis: Bladder: Urinary bladder is unremarkable. Bowel: No dilated loops of large or small bowel. Appendix: Normal appendix. Pelvis: 2.8 cm left ovarian cyst. Uterus is not enlarged. Bones: No destructive bone lesions identified. IMPRESSION: 1. No acute intracranial abnormality. 2. No acute fracture or subluxation of the cervical spine. 3. No acute traumatic, inflammatory or obstructive process identified in the chest, abdomen, or pel vis. 4. Hepatomegaly and hepatic steatosis. 5. 2.8 cm left ovarian simple-appearing cyst. No follow-up imaging is recommended.Reference: MAYUR 2 Mar;17(2):248-254 Electronically signed by: Yoseph Flores 07/23/2021 3:21 AM CDT Due to temporary technical issues with the PACS/Fluency reporting system, reports are being signed by the in house radiologists without review as a courtesy to insure prompt reporting. The interpreting radiologist is fully responsible for the content of the report.
== END 2021-07-23 03:44 | disposition home or self-care (01) ==
LOC: ER 01:05
DX: R51.9 Headache, unspecified (principal); M54.50 Low back pain, unspecified; W17.89XA Other fall from one level to another, initial encounter; Y93.18 Activity, surfing, windsurfing and boogie boarding
CPT/HCPCS: 36415; 70450; 71260; 72125; 74177; 80048; 81003; 81025; 82565; 85025; 86850; 86900; 86901; 99284; Q9967